=== PATIENT | female | born 1965 | race Two or more races ===

== ENCOUNTER 2023-12-12 14:51 | Emergency (ER) | payer MEDICAID ==
[2023-12-12 18:21] VITALS: BP 158/82; PULSE 68; RESP 16; TEMP 97.1; O2SAT 98
[2023-12-12] MEDS ORDERED: ACET500T58 PO (20:32)
[2023-12-12] MEDS: ACETAMINOPHEN 325 MG TAB PO ONE (20:44)
== END 2023-12-12 20:44 | disposition home or self-care (01) ==
LOC: ER 14:51
DX: G44.209 Tension-type headache, unspecified, not intractable (principal)
CPT/HCPCS: 70450